=== PATIENT | female | born 1990 | race Two or more races ===

== ENCOUNTER 2025-05-30 13:25 | Emergency (ER) | payer MEDICAID, SELFPAY ==
[2025-05-30 13:43] VITALS: BP 149/87; PULSE 73; RESP 18; TEMP 37.1; O2SAT 95; BMI 39.4
--- NOTE | 2025-05-30 14:14 | PD.EDURI ---
Upper Respiratory Inf. RME/HPI General Chief Complaint: Headache Stated Complaint: HEADACHE, COUGH, RUNNY NOSE SINCE SATURDAY Time Seen by Provider: 05/30/25 13:45 Arrival date/time: 05/30/25 13:25 Limitations: no limitations RME / HPI RME / HPI Narrative: 35yo female Presents to ED with cough, headache, and nasal congestion x 3days. No fever. No n/v/d. + Sick contacts at home. admits to smoking marijuana. no hx of asthma, dm, or ivdu. Related Data Previous Rx's ?Medication ?Instructions ?Recorded IBU 800 mg tablet (ibuprofen) 800 mg PO Q6H PRN pain #30 tabs 05/30/25 montelukast 10 mg tablet 10 mg PO QDAY #30 tabs 05/30/25 (Singulair) promethazine-DM 6.25 mg-15 mg/5 mL 5 ml PO Q6H #240 mL 05/30/25 oral syrup pseudoephedrine HCl 30 mg tablet 30 mg PO Q12HR #14 tabs 05/30/25 (Sudafed) Allergies Allergy/AdvReac Type Severity Reaction Status Date / Time Penicillins Allergy Mild Hives Verified 05/30/25 13:29 Review of Systems Review of Systems Systems Reviewed: All systems reviewed, normal except as documented Constitutional Constitutional: Denies fever(s) ENT Ears, Nose, Mouth, and Throat: Reports as per HPI Respiratory Respiratory: Reports as per HPI ED Exam General Limitations: Present no limitations General appearance: Present alert and in no apparent distress Head Head exam: Present other (ttp frontal sinus region ) Eye Eye exam: Present normal appearance, PERRL and EOMI ENT ENT exam: Present mucous membranes moist, TM's normal bilaterally and other (Rhinorrhea, erythema of tonsils no exudates) Neck Neck exam: Present normal inspection, full ROM and trachea midline Chest Chest inspection: Present normal inspection and symmetric chest wall rise Respiratory Respiratory exam: Present normal lung sounds bilaterally Cardiovascular Cardiovascular exam: Present regular rate, normal rhythm and normal heart sounds Abdominal Exam Abdominal exam: Present soft and normal bowel sounds Extremities Exam Extremities exam: Present normal inspection and full ROM Back Exam Back exam: Present normal inspection and full ROM Skin Skin exam: Present warm, dry, intact and normal color Course Quality Measures none Orders Category Date Time Status COVID-19 Antigen (In-House) Stat Lab 05/30/25 13:53 Completed HCG Qualitative,Urine Stat Lab 05/30/25 14:40 Completed Influenza A & B Rapid Panel Stat Lab 05/30/25 13:53 Completed Strep A Rapid Stat Lab 05/30/25 13:53 Completed Ketorolac Inj [Toradol Inj] Med 05/30/25 14:00 Discontinued 30 mg IM X1 ONE Vital Signs Vital signs: Vital Signs Temperature 98.7 F 05/30/25 13:43 Pulse Rate 73 05/30/25 13:43 Respiratory Rate 18 05/30/25 13:43 Blood Pressure 149/87 H 05/30/25 13:43 Pulse Oximetry (%) 95 05/30/25 13:43 Oxygen Delivery Method Room Air 05/30/25 13:43 Upper Respiratory Infection Patient data External records reviewed:: [facility] previous records Clinical information provided by:: patient Social determinants that could affect healthcare access:: other (specify) (No PCP appointment on the weekend) Patient has the following chronic illnesses:: none How is presenting disease/condition affected by chronic disease/condition?: no chronic disease Evaluation data The following diagnostics were reviewed and interpreted by me:: lab results Lab and/or radiology exams considered but not ordered:: chest xray considered but unikely pna and absence of fever and no shortness of breath Interpretation Summary: COVID, flu, strep negative hCG negative Medications / Prescriptions Medications or Prescriptions considered but not ordered:: Antibiotics were considered however likely viral Medication administrations:: Medication Administration History Discontinued Medications Ketorolac Tromethamine (Ketorolac Inj 30 Mg/Ml Vial) 30 mg IM X1 ONE Stop: 05/30/25 14:01 Last Admin: 05/30/25 15:00 Dose: 30 mg Documented By: MCKENNA Comments: HCG NEGATIVE TODAY Multiple medications sent for home. Consultations Consultation(s) initiated? (list below): No Diagnosis Upper Respiratory Differential Diagnosis: upper respiratory infection, otitis media, sinusitis, viral infection, bronchitis, influenza and pharyngitis Most likely diagnosis given after review of the tests above:: URI Headache Admission Indicated Admission indicated?: not indicated Admission Request Was there a request for admission?: No Disposition Plan Disposition Plan: Discharge Discharge Attestation Discharge Attestation: The patient and all family members were given an opportunity to ask questions and understood the discharge instructions. Discharge instructions specifically effects, indications for sooner follow up or return to the emergency department, and the expected course of current diagnosis. Patient condition: Stable Discharge Plan Plan Patient Disposition: HOME (Self Care) Discharge Disposition comment: Follow-up with PCP in 2 to 3 days Prescriptions/Referrals Prescriptions/Med Rec: New promethazine-DM 6.25-15 mg/5 mL syrup 5 ml PO Q6H Qty: 240 0RF ibuprofen [IBU] 800 mg tablet 800 mg PO Q6H PRN (Reason: pain) Qty: 30 0RF pseudoephedrine HCl [Sudafed] 30 mg tablet 30 mg PO Q12HR Qty: 14 0RF montelukast [Singulair] 10 mg tablet 10 mg PO QDAY Qty: 30 0RF Referrals: [facility] [Primary Care Provider] - In 1 week Problem List Clinical Impression: Headache, Upper respiratory infection Patient/Caregiver Discharge Instructions Education Materials: ED URI, Viral, No Abx (Adult) Print Language: Macedonian Stand Alone Forms: [employer]va Award Info., Patient Portal Info Letter PA/COMPUTER VIDEO GAME DESIGNER Supervising Physician PA/COMPUTER VIDEO GAME DESIGNER Supervising Physician: Dr. Brown
[2025-05-30 14:33] LABS: COVID-19 Antigen (In-House) Negative (Negative)
[2025-05-30 14:35] LABS: Influenza A Ag Negative; Influenza B Ag Negative; Strep A Rapid Negative (Negative)
[2025-05-30 14:49] LABS: HCG Qualitative,Urine Negative
[2025-05-30] MEDS: KETOROLAC INJ 30 MG/ML VIAL IM (15:00)
== END 2025-05-30 15:50 | disposition home or self-care (01) ==
PROVIDERS: Physician Assistant; Emergency Provider Emergency Medicine; PCP Nurse Practitioner
DX: J06.9 Acute upper respiratory infection, unspecified (principal)
CPT/HCPCS: 81025; 87502; 87651; 87811; 96372; 99282; J1885